=== PATIENT | female | born 1965 | race Caucasian/White ===

== ENCOUNTER 2016-06-14 12:17 | Emergency (ER) | payer OTHER, MEDICARE ==
[~2016-06-14] VITALS: Ht 157.5 cm; Wt 54.4 kg
[~2016-06-14 12:17] MED LIST: BENZONATATE200 M1 PO; MEDROL4 M2 PO; NORFLEX100 MG PO; TRAMADOL50 MG PO
[2016-06-14 12:27] VITALS: BP 124/88
--- NOTE | 2016-06-14 12:58 | ED HAND/WRIST INJURY COMPLAINT ---
History of Present Illness General Chief Complaint: Hand or Wrist Injury Stated Complaint: BIBA FOR HAND INJURY Source: patient Exam Limitations: no limitations Vital Signs & Intake/Output Vital Signs & Intake/Output Vital Signs Date Time Temp Pulse Resp B/P Pulse O2 O2 Flow FiO2 Ox Delivery Rate 06/14 1419 70 06/14 1307 97.5 06/14 1235 98 06/14 1227 97.5 86 20 124/88 97 Room Air Room Air Allergies Coded Allergies: oxycodone (From PERCOCET) (Severe, SYNCOPE 03/22/16) Reconcile Medications No Known Home Medications Triage Note: BIBA FROM HOME, S/P "I HIT MY HAND ON THE CAR DOOR". RIGHT HAD SWELLING AND BRUISING NOTED, ICE PACK MAINTAINED FOR COMFORT. Triage Nurses Notes Reviewed? yes HPI: 50 y/o female arrived by ambulance to [facility] for evaluation of right hand pain after hitting it againist a dresser. She states the pain is 10/10 and she feels nausea and weakness due to the pain. 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 She has full ROM of wrist and fingers. Bruise noted to top of hand. (ZENAIDA STEEN APRN) Past History Travel History Traveled to [place] past 21 day No Medical History Any Pertinent Medical History? 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 No (ZENAIDA STEEN APRN) Review of Systems Review of Systems Constitutional: Reports: no symptoms. EENTM: Reports: no symptoms. Respiratory: Reports: no symptoms. Cardiovascular: Reports: no symptoms. GI: Reports: no symptoms. Genitourinary: Reports: no symptoms. Musculoskeletal: Reports: see HPI. Skin: Reports: no symptoms. Neurological/Psychological: Reports: no symptoms. Hematologic/Endocrine: Reports: no symptoms. Immunologic/Allergic: Reports: no symptoms. All Other Systems: Reviewed and Negative (ZENAIDA STEEN APRN) Physical Exam Physical Exam General Appearance: well developed/nourished, mild distress Head: atraumatic Eyes: Bilateral: PERRL, EOMI. Ears, Nose, Throat: normal pharynx, normal ENT inspection, hearing grossly normal Neck: normal inspection, supple Cardiovascular/Respiratory: normal breath sounds, regular rate/rhythm Back: normal inspection Elbow Left: normal range of motion, normal inspection Elbow Right: normal range of motion, normal inspection Forearm Left: normal range of motion, normal inspection Forearm Right: normal range of motion, normal inspection Wrist Left: normal range of motion, normal inspection Wrist Right: normal range of motion, normal inspection Hand Left: normal inspection, normal range of motion Hand Right: normal range of motion, ecchymosis, tender Skin: intact, normal color, warm/dry Lymphatic: no anterior cervical jennifer Diagram Hands Back 1) Ecchymosis 2) Tenderness (ZENAIDA STEEN APRN) Progress Differential Diagnosis: contusion, fracture Plan of Care: Orders Procedure Date/time Status XRY-HAND, 3 View RIGHT 06/14 1228 Active Current Medications Sig/Ivan Start time Last Medication Dose Stop Time Status Admin Acetaminophen 975 MG ONCE ONE 06/14 1300 UNVr (Tylenol) 06/14 1301 Diagnostic Imaging: Viewed by Me: Radiology Read. Discussed w/RAD: Radiology Read. Comments: PATIENT: GERARDO PENA PRESENT AGE: 50 PATIENT ACCOUNT NO: [id number] : 63 LOCATION: [facility] ORDERING PHYSICIAN: ZENAIDA STEEN APRN SERVICE DATE: 06/14/16 EXAM TYPE: RAD - XRY-HAND, RIGHT EXAMINATION: XR HAND, RIGHT CLINICAL INFORMATION: Pain swelling and bruising right hand COMPARISON: None TECHNIQUE: 3 views of the right hand. FINDINGS: The bones and soft tissues are normal. No fracture. Alignment is anatomic. Joint spaces are maintained. No erosions or soft tissue calcifications. IMPRESSION: No acute bony or joint space abnormality is seen in the right hand. 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 <Electronically signed in Other Vendor System> SIGNED BY: KARLY VALENTINE MD 06/14 1410 (ZENAIDA STEEN APRN) Departure Departure Time of Disposition: 1414 Disposition: HOME OR SELF CARE Condition: Stable Clinical Impression Primary Impression: Contusion Qualifiers: Encounter type: initial encounter Contusion area: hand Laterality: right Qualified Code: S60.221A - Contusion of right hand, initial encounter Referrals: OLIVA DAMICO DO (PCP/Family) Additional Instructions: Tylenol and/or ibuprofen has needed for contusion to right hand. Take as directed. Ice to right hand 3-4 times a day for the next 3 days. Please follow -up with Oliva Damico DO Departure Forms: Customer Survey General Discharge Information Prescriptions: Current Visit Scripts No Known Home Medications (ZENAIDA STEEN APRN) PA/AIRPLANE PILOT CROP DUSTING Co-Sign Statement Statement: ED Attending supervision documentation- [] I saw and evaluated the patient. I have also reviewed all the pertinent lab results and diagnostic results. I agree with the findings and the plan of care as documented in the PA's/AIRPLANE PILOT CROP DUSTING's documentation. [X] I have reviewed the ED Record and agree with the PA's/AIRPLANE PILOT CROP DUSTING's documentation. [] Additions or exceptions (if any) to the PAs/AIRPLANE PILOT CROP DUSTING's note and plan are summarized below: [] (GAURAV CA,ADAM)
--- NOTE | 2016-06-14 14:10 | RADIOLOGY REPORT ---
EXAMINATION: XR HAND, RIGHT CLINICAL INFORMATION: Pain swelling and bruising right hand COMPARISON: None TECHNIQUE: 3 views of the right hand. FINDINGS: The bones and soft tissues are normal. No fracture. Alignment is anatomic. Joint spaces are maintained. No erosions or soft tissue calcifications. IMPRESSION: No acute bony or joint space abnormality is seen in the right hand.
== END 2016-06-14 14:19 ==
LOC: ERH 12:17
DX: S60.221A Contusion of right hand, initial encounter (principal); W22.03XA Walked into furniture, initial encounter
CPT/HCPCS: 73130-RT; G0463

== ENCOUNTER 2016-10-15 09:38 | Emergency (ER) | payer OTHER, MEDICARE ==
[~2016-10-15] VITALS: Ht 157.5 cm; Wt 56.7 kg
[2016-10-15 09:41] VITALS: BP 151/90
--- NOTE | 2016-10-15 10:26 | ED NECK/BACK PAIN COMPLAINT ---
History of Present Illness General Chief Complaint: Low Back Pain/Injury Stated Complaint: LOW BACK PAIN Source: patient, old records, friend Exam Limitations: no limitations Vital Signs & Intake/Output Vital Signs & Intake/Output Vital Signs Date Time Temp Pulse Resp B/P B/P Pulse O2 O2 Flow FiO2 Mean Ox Delivery Rate 10/15 0941 97.8 118 18 151/90 100 Room Air Allergies Coded Allergies: oxycodone (From PERCOCET) (Severe, SYNCOPE 03/22/16) Reconcile Medications No Known Home Medications Triage Note: 50 Y/O FEMALE C/O LOW BACK PAIN AND R FLANK PAIN SINCE COUGHING YESTERDAY. HAS BEEN USING HEATING PAD AND TOOK ADVIL WITH NO RELIEF - LAST DOSE YESTERDAY. PREFERS TO STAND DUE TO PAIN. Triage Nurses Notes Reviewed? yes Onset: Afternoon Duration: hour(s):, constant, continues in ED Timing: recent history Quality/Severity: moderate, severe, sharpness Location: lumbar spine, paraspinous muscles Radiation: none Context: after coughing Method of Injury: after coughing Loss of Consciousness: no loss of consciousness Modifying Factors: immobilization, movement, pain medication, rest Associated Symptoms: lower back pain, muscle spasm LMP (ages 10-50): post menopausal : No Patient currently breastfeeds: No HPI: The afternoon prior to admission patient had a strong cough developing right low back pain described as moderate to severe sharp worse with turning bending moving pressure with little improvement from heating pad and ibuprofen. She denies fever chills nausea vomiting diarrhea abdominal pain shortness of breath headache dysuria rash bleeding congestion change in bowel bladder habit change in motor sensory function. Past History Travel History Traveled to [place] past 21 day No Medical History Any Pertinent Medical History? 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 No Review of Systems Review of Systems Constitutional: Reports: no symptoms. Eyes: Reports: no symptoms. Ears, Nose, Throat, Mouth: Reports: no symptoms. Respiratory: Reports: no symptoms. Cardiovascular: Reports: no symptoms. Gastrointestinal/Abdominal: Reports: no symptoms. Musculoskeletal: Reports: see HPI, back pain, muscle stiffness. Skin: Reports: no symptoms. Neurological/Psychological: Reports: no symptoms. All Other Systems: Reviewed and Negative Physical Exam Physical Exam General Appearance: well developed/nourished, mild distress Head: atraumatic, normal appearance Eyes: Bilateral: normal appearance, PERRL, EOMI. Ears, Nose, Throat, Mouth: hearing grossly normal, moist mucous membrane Neck: normal inspection, supple, full range of motion, normal alignment Respiratory: normal breath sounds, chest non-tender, no respiratory distress, quiet respiration, lungs clear Cardiovascular: regular rate/rhythm, normal peripheral pulses, norml femoral pulses equa Peripheral Pulses: 4+ carotid (R), 4+ carotid (L) Gastrointestinal: normal bowel sounds, soft, non-tender, no organomegaly Back: normal inspection, normal range of motion, muscle spasm (right flank), no vertebral tenderness Extremities: non-tender, normal range of motion Straight Leg Raising: Right: Negative. Left: Negative. Sensory: Medial Le: L4R, L4L. Top of Foot: 2: L5R, L5L. Sole of Foot: 2: SIR, NAILA. Motor: Deficit L4 Right: No Deficit L4 Left: No Deficit L5 Right: No Deficit L5 Left: No Deficit S1 Right: No Deficit S1 Right: No Walk on Heels: 3: L4 Left, L4 Right. Ext. Big Toe: 3: L5 Left, L5 Right. Walk on Toes: 3: S1 Left, S1 Right. DTR: Deficit L4 Left: No Deficit L4 Right: No Deficit S1 Left: No Deficit S1 Right: No Patellar: 3: L4 Right, L4 Left. Neurologic/Psych: awake, alert, oriented x 3, normal gait, normal mood/affect, workers compensation manager II-XII nml as tested Skin: intact, normal color, warm/dry Progress Differential Diagnosis: myofascial strain, T/L spine injury Plan of Care: Orders Procedure Date/time Status XRY-LUMBOSACRAL SPINE 4 VIEWS 10/15 1012 Active Diagnostic Imaging: Viewed by Me: Radiology Read. Discussed w/RAD: Radiology Read. Radiology Impression: Intact posterior spinal fusion hardware. Mild degenerative change. No evidence for acute injury. Departure Departure Time of Disposition: 1107 Disposition: HOME OR SELF CARE Condition: Stable Clinical Impression Primary Impression: Sprain and strain of lumbosacral joint/ligament Qualifiers: Encounter type: initial encounter Qualified Code: S33.5XXA - Sprain of ligaments of lumbar spine, initial encounter Referrals: VIKY DAMICO DO (PCP/Family) Departure Forms: Customer Survey General Discharge Information Prescriptions: Current Visit Scripts Tramadol HCl (Ultram) 1-2 TAB PO Q6PRN PRN severe pain #30 TAB Baclofen 1 TAB PO TIDPRN PRN muscle spasm/strain #30 TAB Ibuprofen 1 TAB PO Q6PRN PRN pain #50 TAB with food
--- NOTE | 2016-10-15 11:04 | RADIOLOGY REPORT ---
EXAMINATION: LUMBOSACRAL SPINE 3 VIEWS CLINICAL INFORMATION: Back pain. COMPARISON: 12/23/2006. TECHNIQUE: AP, lateral, spot lateral views of the lumbosacral spine are provided. FINDINGS: Posterior spinal fusion hardware is intact extending from L5 to S1. There is mild disc height loss at L3/L4. There is mild disc height loss at L1/L2. There is mild anterior osteophyte formation. No acute fractures are present. IMPRESSION: Intact posterior spinal fusion hardware. Mild degenerative change. No evidence for acute injury.
[2016-10-15] MEDS ORDERED: ULTRAM50 M1 PO (11:09)
[2016-10-15] MEDS ORDERED: BACLOFEN10 M1 PO (11:09)
[2016-10-15] MEDS ORDERED: IBUPROFEN600 M1 PO (11:09)
== END 2016-10-15 11:16 ==
LOC: ERH 09:38
DX: S33.9XXA Sprain of unspecified parts of lumbar spine and pelvis, initial encounter (principal); S39.012A Strain of muscle, fascia and tendon of lower back, initial encounter; X50.9XXA Other and unspecified overexertion or strenuous movements or postures, initial encounter; Y93.89 Activity, other specified; Y92.9 Unspecified place or not applicable
CPT/HCPCS: 72110; 96372; J1885

== ENCOUNTER 2016-11-21 09:16 | Emergency (ER) | payer OTHER, MEDICARE ==
[~2016-11-21] VITALS: Ht 157.5 cm; Wt 54.4 kg
[~2016-11-21 09:16] MED LIST changes: +BACLOFEN10 M1 PO; +IBUPROFEN600 M1 PO; +ULTRAM50 M1 PO
[2016-11-21 09:49] VITALS: BP 125/89
--- NOTE | 2016-11-21 10:14 | ED GENERAL ADULT ---
History of Present Illness General Chief Complaint: Upper Respiratory Sx/Fever Stated Complaint: COUGHING X 4DYS Source: patient Exam Limitations: no limitations Vital Signs & Intake/Output Vital Signs & Intake/Output Vital Signs Date Time Temp Pulse Resp B/P B/P Pulse O2 O2 Flow FiO2 Mean Ox Delivery Rate 11/21 1053 96 Room Air 11/21 0949 97.9 100 18 125/89 96 Room Air Allergies Coded Allergies: oxycodone (From PERCOCET) (Severe, SYNCOPE 03/22/16) Reconcile Medications Azithromycin (Zithromax) 250 MG TABLET 1 DP PO AD BRONCHITIS 2 the first day followed by 1 for days 2-5 Prednisone 20 MG TABLET 2 TAB PO DAILY BRONCHITIS Triage Note: COMPLAINS OF 2 DAYS OF COUGH PRODUCTIVE OF SPUTUM, UNSURE OF COLOR. AFEBRILE AT TRIAGE Triage Nurses Notes Reviewed? yes Onset: Abrupt Duration: day(s): Timing: recent history HPI: 11/21/16 11:14 PM 51-year-old female presents to the emergency department complaining of cough for 4 days. She says it's whitish sputum. No fever. She does not smoke. No shortness of breath. Lungs are clear on initial evaluation. Chest x-ray is negative. The onset of the symptoms were abrupt, the duration has been 4 days, the severity is significant as her symptoms required her to come to the emergency department for care. Past History Travel History Traveled to [place] past 21 day No Medical History Any Pertinent Medical History? 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 No Review of Systems Review of Systems Constitutional: Denies: fever. EENTM: Denies: visual changes. Respiratory: Reports: cough, sputum production. Denies: hemoptysis, short of breath, wheezing. Cardiovascular: Denies: chest pain. GI: Denies: abdominal pain. Genitourinary: Reports: no symptoms. Musculoskeletal: Reports: no symptoms. Skin: Denies: rash. Neurological/Psychological: Reports: no symptoms. Hematologic/Endocrine: Reports: no symptoms. Immunologic/Allergic: Reports: no symptoms. Physical Exam Physical Exam General Appearance: alert, awake, anxious, mild distress Head: atraumatic, normal appearance Eyes: Bilateral: normal appearance, PERRL, EOMI. Ears, Nose, Throat: normal pharynx, normal ENT inspection Neck: normal inspection, supple, full range of motion Respiratory: chest non-tender, no respiratory distress, rhonchi Cardiovascular: regular rate/rhythm Peripheral Pulses: 4+ radial (R), 4+ radial (L) Gastrointestinal: soft, non-tender Back: normal range of motion Extremities: no edema Neurologic/Psych: no motor/sensory deficits, awake, alert, oriented x 3 Skin: intact, normal color, warm/dry Core Measures ACS in differential dx? No CVA/TIA Diagnosis: No Severe Sepsis Present: No Septic Shock Present: No Progress Differential Diagnoses I considered the following diagnoses in my evaluation of the patient: [ Bronchitis, pneumonia, pulmonary embolism, pneumothorax] Plan of Care: Orders Procedure Date/time Status XRY-CHEST XRAY, PA AND LATERAL 11/21 950 Active Initial ED EKG: none Departure Departure Disposition: HOME OR SELF CARE Condition: Stable Clinical Impression Primary Impression: Bronchitis Referrals: VIKY DAMICO DO (PCP/Family) Departure Forms: Customer Survey General Discharge Information Prescriptions: Current Visit Scripts Prednisone 2 TAB PO DAILY #10 TAB Azithromycin (Zithromax) 1 DP PO AD #6 TAB 2 the first day followed by 1 for days 2-5 Comments I considered the diagnosis of pulmonary embolism. She has no chest pain. She has no shortness of breath. She presents with a cough productive of white sputum. Chest x-ray was negative Official results below She was treated with a Z-Frank and a short course of prednisone. She will follow- up with her doctor this week. PATIENT: GERARDO PENA PRESENT AGE: 51 PATIENT ACCOUNT NO: [id number] : 63 LOCATION: [facility] ORDERING PHYSICIAN: SOLEDAD ARORA DO SERVICE DATE: 11/21/16 EXAM TYPE: RAD - XRY-CHEST XRAY, PA AND LATERAL EXAMINATION: XR CHEST CLINICAL INFORMATION: Cough for 3 days, productive. COMPARISON: 08/24/2007 TECHNIQUE: 2 views of the chest were obtained. FINDINGS: The lungs are well expanded. There is no focal consolidation, edema, or effusion. No pneumothorax. The cardiomediastinal silhouette is within normal limits. No acute osseous abnormality. IMPRESSION: No acute pulmonary findings. DICTATED BY: KATHY NAVA MD DATE/TIME DICTATED:11/21/161006 BOATING SAFETY OFFICER:NA DATE/TIME TRANSCRIBED:11/21/161006 CONFIDENTIAL, DO NOT COPY WITHOUT APPROPRIATE AUTHORIZATION. <Electronically signed in Other Vendor System> SIGNED BY: KATHY NAVA MD 11/21 1015 Critical Care Note Critical Care Note Critical Care Time: non-applicable
[2016-11-21] MEDS ORDERED: ZITHROMAX250 M2 PO (11:17)
[2016-11-21] MEDS ORDERED: PREDNISONE20 M1 PO (11:17)
== END 2016-11-21 11:31 ==
LOC: ERH 09:16
DX: J40 Bronchitis, not specified as acute or chronic (principal)